=== PATIENT | male | born 1965 | race Caucasian/White ===

== ENCOUNTER 2016-10-23 08:28 | Day surgery (SDC) | payer MEDICARE ==
[~2016-10-23 08:28] MED LIST: LIDOCAINE HCL 1% MPF SOL ONE; PROPOFOL 500 MG/50 ML EMU IV ONE
[2016-10-23 10:27] VITALS: TEMP 98.4
[2016-10-23 10:47] VITALS: RESP 20
[2016-10-23 10:56] VITALS: BP 133/65; PULSE 72; O2SAT 97
== END 2016-10-23 11:09 | disposition home or self-care (01) | DRG 392 ==
LOC: SURG 08:28
PROVIDERS: ATTEND Internal Medicine Gastroenterology
DX: K21.9 Gastro-esophageal reflux disease without esophagitis (principal); I85.10 Secondary esophageal varices without bleeding; K74.60 Unspecified cirrhosis of liver; K31.9 Disease of stomach and duodenum, unspecified
CPT/HCPCS: J2001; J2704

== ENCOUNTER 2019-04-14 09:41 | Emergency (ER) | payer MEDICAID, MEDICARE ==
[2019-04-14] MEDS ORDERED: SODIUM CHLORIDE 0.9% FLUSH 10 ML SOL IV PRN ×2 (09:45→09:47)
[2019-04-14] MEDS ORDERED: NICARDIPINE HCL 25 MG in SODIUM CHLORIDE 0.9% 250 ML 250 ML IV PRN (09:58)
[2019-04-14] MEDS ORDERED: NICARDIPINE HCL 25 MG/10 ML VIAL IV ONE (09:59)
[2019-04-14 10:02] LABS: HEMATOCRIT 54 % (39-53); HEMOGLOBIN 17.5 gm/dl (13.5-17.7); MEAN CORPUSCULAR HEMOGLOBIN 31.4 pg (27.0-32.0); MEAN CORPUSCULAR HGB CONC 32.2 gm/dl (32.0-36.0); MEAN CORPUSCULAR VOLUME 97 fL (80-100)
[2019-04-14 10:05] LABS: INR 1.09 (0.87-1.13)
[2019-04-14 10:09] LABS: BLOOD UREA NITROGEN 8 mg/dl (7-18); CARBON DIOXIDE 23.9 mEq/L (21-32); CHLORIDE 102 mMol/L (98-107); CREATININE 1.06 mg/dl (0.80-1.30); GLUCOSE 98 mg/dl (74-106); TROP I < 0.017 ng/ml (0.000-0.056)
[2019-04-14 10:24] VITALS: TEMP 99.8
[2019-04-14 10:24] LABS: BAND NEUTROPHILS % (MANUAL) 1 %; BASOPHILS % (MANUAL) 0 % (0-3); EOSINOPHILS % (MANUAL) 2 % (0-9); LYMPHOCYTES % (MANUAL) 23 % (10-50); MONOCYTES % (MANUAL) 6 % (0-12); NEUTROPHILS % (MANUAL) 68 % (37-80)
[2019-04-14 10:25] LABS: NORMAL RBCS PRESENT
[2019-04-14 10:35] VITALS: O2SAT 93
[2019-04-14 10:49] VITALS: BP 170/78; PULSE 110; RESP 26
== END 2019-04-14 10:59 | disposition short-term general hospital (02) | DRG 65 ==
LOC: ED 09:41
DX: I63.9 Cerebral infarction, unspecified (principal); G81.91 Hemiplegia, unspecified affecting right dominant side; I69.392 Facial weakness following cerebral infarction; R29.810 Facial weakness; R47.81 Slurred speech; R29.709 NIHSS score 9; R40.2412 Glasgow coma scale score 13-15, at arrival to emergency department
CPT/HCPCS: 70450; 71045; 80048; 84484; 85007; 85027; 85610; 85730; 93005; 96365; 99291; J3490